=== PATIENT | male | born 1965 | race African-American/Black ===

== ENCOUNTER 2016-12-03 00:46 | Emergency (ER) | payer OTHER ==
[~2016-12-03] VITALS: Ht 180.3 cm; Wt 100.0 kg
[~2016-12-03 00:46] MED LIST: seroquel; zyprexa
[2016-12-03] MEDS ORDERED: DEXT 5%/0.45% NACL 1000ML 1,000 ML IV ONE (01:58)
[2016-12-03] MEDS ORDERED: ONDANSETRON HCL 4MG/2ML VIAL IV STA (01:58)
[2016-12-03] MEDS ORDERED: LEVETIRACETAM 500MG PREMIX 100 ML IV ONE (02:00)
[2016-12-03 02:23] LABS: BASOPHILS % 1.6 % (0.0-2.0); EOSINOPHILS % 3.7 % (0.0-5.0); HEMATOCRIT. 43.4 % (42.0-52.0); HEMOGLOBIN. 14.1 g/dL (14.0-18.0); LYMPHOCYTES % 35.7 % (20.0-50.0); MEAN CORPUSCULAR HEMOGLOBIN 29.3 pg (28.0-32.0); MEAN CORPUSCULAR VOLUME 90.2 fL (80.0-94.0); MEAN PLATELET VOLUME 8.9 fl (7.4-10.4); MONOCYTES % 8.6 % (2.0-8.0); NEUTROPHILS % 50.4 % (40.0-76.0); PLATELET 244 x1000/uL (130-400); RED BLOOD CELL COUNT 4.82 mill/uL (4.7-6.1); RED CELL DISTRIBUTION WIDTH 17.1 % (11.6-14.6)
[2016-12-03 02:26] LABS: CHLORIDE 107 mEq/L (98-107)
[2016-12-03 02:35] LABS: CARBON DIOXIDE 28 mEq/L (21-32); ETHANOL BLOOD 267 mg/dL
[2016-12-03 04:54] VITALS: BP 114/74
== END 2016-12-03 06:09 | disposition home or self-care (01) ==
LOC: ER 00:57
DX: R56.9 Unspecified convulsions (principal); R51 Headache; F19.10 Other psychoactive substance abuse, uncomplicated
CPT/HCPCS: 36415; 70450; 80053; 85025; 93005; 96365; 96375; 99291; G0482; J1953; J2405; J3490; X7700; Z7610

== ENCOUNTER 2017-01-23 21:16 | Emergency (ER) | payer OTHER ==
[~2017-01-23] VITALS: Ht 177.8 cm; Wt 100.0 kg
[2017-01-23] MEDS ORDERED: SODIUM CHLORIDE 0.9% 1,000 ML IV ONE (21:33)
[2017-01-23 21:54] LABS: BASOPHILS % 2.9 % (0.0-2.0); EOSINOPHILS % 2.1 % (0.0-5.0); HEMATOCRIT. 36.5 % (42.0-52.0); HEMOGLOBIN. 12.2 g/dL (14.0-18.0); LYMPHOCYTES % 44.2 % (20.0-50.0); MEAN CORPUSCULAR HEMOGLOBIN 30.1 pg (28.0-32.0); MEAN CORPUSCULAR VOLUME 90.1 fL (80.0-94.0); MEAN PLATELET VOLUME 9.3 fl (7.4-10.4); MONOCYTES % 14.5 % (2.0-8.0); NEUTROPHILS % 36.3 % (40.0-76.0); PLATELET 127 x1000/uL (130-400); RED BLOOD CELL COUNT 4.05 mill/uL (4.7-6.1); RED CELL DISTRIBUTION WIDTH 15.4 % (11.6-14.6)
[2017-01-23 22:11] LABS: CARBON DIOXIDE 27 mEq/L (21-32); CHLORIDE 104 mEq/L (98-107)
[2017-01-23 22:17] LABS: ETHANOL BLOOD 413 mg/dL
[2017-01-23 23:12] LABS: *AMPHETAMINES SCREEN URINE NEGATIVE (NEGATIVE); *BARBITURATES SCREEN URINE NEGATIVE (NEGATIVE); *BENZODIAZEPINES SCREEN URINE NEGATIVE (NEGATIVE); *COCAINE SCREEN URINE NEGATIVE (NEGATIVE); CANNABINOID URINE SCREEN NEGATIVE (NEGATIVE); METHADONE URINE SCREEN NEGATIVE (NEGATIVE); OPIATES URINE SCREEN NEGATIVE (NEGATIVE); PHENCYCLIDINE URINE SCREEN NEGATIVE (NEGATIVE)
[2017-01-24] MEDS ORDERED: POTASSIUM BICARB/CIT ACID 25 MEQ TABLET.EFF PO ONE (00:15)
[2017-01-25 09:00] VITALS: BP 112/78
== END 2017-01-25 10:37 | disposition home or self-care (01) ==
LOC: ER 21:29
DX: F31.9 Bipolar disorder, unspecified (principal); F10.129 Alcohol abuse with intoxication, unspecified; R45.851 Suicidal ideations; Z59.0 Homelessness
CPT/HCPCS: 36415; 70450; 80053; 80305; 80307; 80329; 85025; 93005; 96360; 96361; 99285; G0482; J7030; Z7610

== ENCOUNTER 2017-01-29 16:29 | Emergency (ER) | payer OTHER ==
[~2017-01-29] VITALS: Ht 180.3 cm; Wt 110.0 kg
[2017-01-29] MEDS ORDERED: SODIUM CHLORIDE 0.9% 1,000 ML IV ONE ×2 (17:07→18:06)
[2017-01-29 17:44] LABS: BASOPHILS % 3.4 % (0.0-2.0); EOSINOPHILS % 3.2 % (0.0-5.0); HEMATOCRIT. 37.2 % (42.0-52.0); HEMOGLOBIN. 12.1 g/dL (14.0-18.0); LYMPHOCYTES % 38.9 % (20.0-50.0); MEAN CORPUSCULAR HEMOGLOBIN 29.8 pg (28.0-32.0); MEAN CORPUSCULAR VOLUME 91.5 fL (80.0-94.0); MEAN PLATELET VOLUME 9.2 fl (7.4-10.4); MONOCYTES % 12.1 % (2.0-8.0); NEUTROPHILS % 42.4 % (40.0-76.0); PLATELET 165 x1000/uL (130-400); RED BLOOD CELL COUNT 4.07 mill/uL (4.7-6.1); RED CELL DISTRIBUTION WIDTH 15.3 % (11.6-14.6)
[2017-01-29 17:48] LABS: CHLORIDE 106 mEq/L (98-107)
[2017-01-29 17:56] LABS: CARBON DIOXIDE 27 mEq/L (21-32)
[2017-01-29] MEDS ORDERED: POTASSIUM CHLORIDE 20MEQ TABLET SR PO ONE (18:00)
[2017-01-29 18:01] LABS: CREATINE KINASE 956 IU/L (39-308); ETHANOL BLOOD 298 mg/dL
[2017-01-29] MEDS ORDERED: FOLIC ACID 1 MG, THIAMINE HCL 100 MG, MVI, ADULT NO.1 10 ML in DEXTROSE 5% WATER 1,000 ML IV ONE ×4 (18:15)
[2017-01-29 18:52] LABS: T4 FREE 1.06 ng/dL (0.76-1.46)
[2017-01-29] MEDS ORDERED: THIAMINE HCL 100 MG/1 ML 2ML VIAL ONE (19:08)
[2017-01-29] MEDS ORDERED: FOLIC ACID 1 MG, MVI, ADULT NO.1 10 ML in DEXTROSE 5% WATER 1,000 ML IV ONE ×3 (19:41)
[2017-01-29 21:45] LABS: CLARITY URINE CLEAR (CLEAR); COLOR URINE YELLOW (YELLOW); GLUCOSE URINE NEGATIVE (NEGATIVE); KETONES URINE NEGATIVE (NEGATIVE); LEUKOCYTE ESTERASE URINE NEGATIVE (NEGATIVE); NITRITE URINE NEGATIVE (NEGATIVE); OCCULT BLOOD URINE NEGATIVE (NEGATIVE); PH URINE 6.5 (4.5-8.0); PROTEIN URINE NEGATIVE (NEGATIVE); SPECIFIC GRAVITY URINE 1.018 (1.005-1.030)
[2017-01-29 22:06] LABS: *AMPHETAMINES SCREEN URINE NEGATIVE (NEGATIVE); *BARBITURATES SCREEN URINE NEGATIVE (NEGATIVE); *BENZODIAZEPINES SCREEN URINE NEGATIVE (NEGATIVE); *COCAINE SCREEN URINE NEGATIVE (NEGATIVE); CANNABINOID URINE SCREEN NEGATIVE (NEGATIVE); METHADONE URINE SCREEN NEGATIVE (NEGATIVE); OPIATES URINE SCREEN NEGATIVE (NEGATIVE); PHENCYCLIDINE URINE SCREEN NEGATIVE (NEGATIVE)
[2017-01-30 01:21] VITALS: BP 126/77
== END 2017-01-30 05:30 | disposition home or self-care (01) ==
LOC: ER 16:34
DX: E86.0 Dehydration (principal); R53.1 Weakness; F29 Unspecified psychosis not due to a substance or known physiological condition; M62.82 Rhabdomyolysis; F10.10 Alcohol abuse, uncomplicated; Y90.8 Blood alcohol level of 240 mg/100 ml or more; F31.9 Bipolar disorder, unspecified; F20.9 Schizophrenia, unspecified
CPT/HCPCS: 36415; 80053; 80061; 80305; 80307; 80329; 81001; 82550; 84439; 84443; 84481; 85025; 93005; 96361; 96365; 96366; 99285; G0482; J3411; J3490; J7030; J7070